=== PATIENT | male | born 1985 ===

== ENCOUNTER 2020-09-08 16:04 | Outpatient (REF) | payer MEDICARE, MEDICAID, SELFPAY | END 2020-09-08 16:05 | disposition home or self-care (01) | LOC: HO.LAB 16:04 | PROVIDERS: PCP Internal Medicine; Visit Provider Internal Medicine | DX: Z20.828 Contact with and (suspected) exposure to other viral communicable diseases (principal) | CPT/HCPCS: U0003 ==

== ENCOUNTER 2021-11-23 13:17 | Outpatient (REF) | payer MEDICARE, MEDICAID, SELFPAY ==
[2021-11-23 15:54] LABS: Binax Internal Control QC Valid; Binax Now Covid-19 Ag Negative (Negative)
== END 2021-11-23 13:18 | disposition home or self-care (01) ==
LOC: HO.LAB 13:17
PROVIDERS: Visit Provider Internal Medicine
DX: Z20.822 Contact with and (suspected) exposure to COVID-19 (principal)
CPT/HCPCS: C9803

== ENCOUNTER 2022-01-27 11:09 | Outpatient (REF) | payer MEDICARE, MEDICAID, SELFPAY ==
--- NOTE | ~2022-01-27 | XR_ITS ---
EXAMINATION: XR CHEST CLINICAL INFORMATION: Chest pain COMPARISON: Chest 06/08/2016 TECHNIQUE: 2 views of the chest were obtained. FINDINGS: The lungs are well-expanded with mild blunting of bilateral CP angles from pleural thickening. There is lingular atelectatic changes. Rest of lungs are clear. The heart size and pulmonary vascularity is normal. No gross bony abnormality seen. XR/XR chest 2V IMPRESSION: Lingular atelectasis. Rest of the lungs are clear and expanded. There is mild blunting of CP angle from pleural thickening and/or effusion.
[2022-01-27 11:34] LABS: Basophils Absolute Auto 0.1 X10*3/uL (0.0-0.2); Basophils Percent Auto 0.4 % (0-2); Eosinophils Absolute Auto 0.2 X10*3/uL (0.0-0.4); Eosinophils Percent Auto 1.6 % (0-4); Hematocrit 44.1 % (42.0-52.0); Hemoglobin 14.1 g/dl (14.0-18.0); Imm Gran Abs Auto 0.05 X10*3/uL (0.00-0.03); Imm Gran Pct Auto 0.4 % (0.0-0.4); Lymphocytes Absolute Auto 1.4 X10*3/uL (1.2-4.9); Lymphocytes Percent Auto 10.2 % (20-40); MANUAL DIFF FLAG SCAN; Mean Corpuscular Hemoglobin 27.3 pg (27.0-33.0); Mean Corpuscular Volume 85.5 fL (80.0-98.0); Monocytes Absolute Auto 2.2 X10*3/uL (0.1-1.2); Monocytes Percent Auto 15.7 % (2-11); Neutrophils Absolute Auto 10.1 x10*3/uL (2.0-8.3); Neutrophils Percent Auto 71.7 % (45-73); Platelet Count 296 X10*3/uL (160-400); Red Blood Count 5.16 X10*6/uL (4.60-5.80); Red Cell Distribution Width 13.3 % (11.0-16.0); SCAN SMEAR FLAG 1
[2022-01-27 12:10] LABS: SLIDE REVIEW VERIFIED
[2022-01-27 12:34] LABS: Alanine Aminotransferase 15 U/L (0-40); Albumin Level 4.1 g/dL (3.5-5.0); Alkaline Phosphatase 68 U/L (39-117); Anion Gap 13 (12-20); Aspartate Amino Transferase 14 U/L (5-37); Bilirubin Total 0.7 mg/dL (0.0-1.0); Blood Urea Nitrogen 6 mg/dL (9-16); Calcium 9.9 mg/dL (8.4-10.2); Carbon Dioxide 25 mmol/L (22-29); Chloride 106 mmol/L (96-108); Estimated Glomerular Filt Rate > 60; Glucose Fasting 101 mg/dL (60-99); Sodium 140 mmol/L (135-145); Total Protein 7.6 g/dL (6.5-8.0)
== END 2022-01-27 11:10 | disposition home or self-care (01) ==
LOC: HO.LAB 11:09
PROVIDERS: PCP Internal Medicine; Visit Provider Nurse Practitioner Family
DX: R55 Syncope and collapse (principal); R51.9 Headache, unspecified; R07.9 Chest pain, unspecified; I10 Essential (primary) hypertension; E78.00 Pure hypercholesterolemia, unspecified
CPT/HCPCS: 36415; 71046; 80053; 84443; 85025

== ENCOUNTER → 2022-03-11 11:27 | Outpatient (REF) | payer MEDICARE, MEDICAID, SELFPAY ==
--- NOTE | 2022-03-11 11:29 | HM_ITS ---
* Total monitoring time 6 days and 23 hours. * Underlying rhythm is sinus. Average rate 77/Min. Range 47 to 144/Min. * No atrial fibrillation or flutter or AV blocks or pauses. * Rare supraventricular ectopy with minimal burden. * Rare ventricular ectopy with minimal burden. * No patient events. MTDD
== END ==
LOC: HO.CARD 11:27
PROVIDERS: PCP Internal Medicine; Visit Provider Nurse Practitioner Family
DX: R55 Syncope and collapse (principal); R51.9 Headache, unspecified
CPT/HCPCS: 93242

== ENCOUNTER 2022-10-27 09:09 | Outpatient (REF) | payer MEDICARE, MEDICAID, SELFPAY ==
[2022-10-27 09:24] LABS: MANUAL DIFF FLAG NO
[2022-10-27 09:31] LABS: Basophils Absolute Auto 0.1 X10*3/uL (0.0-0.2); Basophils Percent Auto 0.7 % (0-2); Eosinophils Absolute Auto 0.5 X10*3/uL (0.0-0.4); Eosinophils Percent Auto 7.1 % (0-4); Hematocrit 45.5 % (42.0-52.0); Imm Gran Abs Auto 0.02 X10*3/uL (0.00-0.03); Imm Gran Pct Auto 0.3 % (0.0-0.4); Lymphocytes Absolute Auto 2.3 X10*3/uL (1.2-4.9); Mean Corpuscular Hemoglobin 27.6 pg (27.0-33.0); Mean Corpuscular Volume 83.8 fL (80.0-98.0); Mean Platelet Volume 10.4 fL (9.4-12.4); Monocytes Percent Auto 13.1 % (2-11); Neutrophils Absolute Auto 3.6 x10*3/uL (2.0-8.3); Neutrophils Percent Auto 47.8 % (45-73); Platelet Count 271 X10*3/uL (160-400); Red Blood Count 5.43 X10*6/uL (4.60-5.80); Red Cell Distribution Width 13.2 % (11.0-16.0); White Blood Count 7.5 X10*3/uL (4.8-10.8)
[2022-10-27 10:13] LABS: Erythrocyte Sedimentation Rate 5 MM/HR (0-15)
[2022-10-27 10:37] LABS: Alanine Aminotransferase 19 U/L (0-40); Albumin Level 4.3 g/dL (3.5-5.0); Alkaline Phosphatase 55 U/L (39-117); Anion Gap 12 (12-20); Aspartate Amino Transferase 21 U/L (5-37); Blood Urea Nitrogen 9 mg/dL (9-16); Calcium 9.8 mg/dL (8.4-10.2); Carbon Dioxide 23 mmol/L (22-29); Chloride 109 mmol/L (96-108); Cholesterol 127 mg/dL; Estimated Glomerular Filt Rate > 60; Glucose Fasting 92 mg/dL (60-99); HDL Cholesterol 36 mg/dL; LDL Cholesterol Calculated 79 mg/dl; Potassium 3.8 mmol/L (3.3-5.1); Sodium 140 mmol/L (135-145); Total Protein 7.4 g/dL (6.5-8.0); Triglycerides 63 mg/dL
[2022-10-27 11:42] LABS: Bilirubin Total 0.5 mg/dL (0.0-1.0); TSH reflex Free T4 0.95 uIU/mL (0.32-4.0); Vitamin D 25-OH Total 8.6 ng/mL (>30)
[2022-10-27 12:57] LABS: Folate 5.2 ng/mL (> or = 4.0); Vitamin B12 431 pg/mL (200-900)
== END 2022-10-27 09:10 | disposition home or self-care (01) ==
LOC: HO.LAB 09:09
PROVIDERS: PCP Internal Medicine; Visit Provider Internal Medicine
DX: Z00.00 Encounter for general adult medical examination without abnormal findings (principal); Q85.01 Neurofibromatosis, type 1; E53.8 Deficiency of other specified B group vitamins; E55.9 Vitamin D deficiency, unspecified; G81.91 Hemiplegia, unspecified affecting right dominant side; M79.7 Fibromyalgia
CPT/HCPCS: 36415; 80053; 80061; 82306; 82607; 82746; 84443; 85025; 85652

== ENCOUNTER 2022-10-28 15:02 | Outpatient (REF) | payer MEDICARE, MEDICAID, SELFPAY ==
--- NOTE | ~2022-10-28 | MR_ITS ---
EXAMINATION: MR BRAIN WITHOUT CONTRAST CLINICAL INFORMATION: Hemiplegia, unspecified affecting right dominant side. COMPARISON: Brain MRI from outside hospital February 07, 2022. TECHNIQUE: Multiplanar, multisequence imaging of the brain was performed without intravenous contrast. FINDINGS: There is no acute infarction, hemorrhage, brain parenchymal mass, or extra-axial fluid collection. There is asymmetric enlargement of the right optic nerve predominantly involving the intracanalicular segment but appears similar compared with prior. There is a partially visualized large extracranial lesion centered within the right C1-C2 neural foramen presumably representing a large neurofibroma. Innumerable lesions are seen throughout the scalp compatible with additional neurofibromas. The ventricles are normal in size without hydrocephalus. The major arterial flow voids are preserved at the skull base There is a possible lesion within the upper cervical canal at the C2-C3 level seen on series 3 image 12/. 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 There is a possible lesion within the cervical canal at the C2-C3 level which could represent an extra-axial lesion or potentially an intramedullary lesion (series 3 image 12/23). Dedicated cervical spine MRI without and with contrast is recommended to further evaluate this abnormality. Unchanged enlargement of the right optic nerve. No new or acute abnormality is seen. This report will be called in to the referring clinician's office.
== END 2022-10-28 15:03 | disposition home or self-care (01) ==
LOC: HO.MRI 15:02
PROVIDERS: Visit Provider Internal Medicine
DX: G81.91 Hemiplegia, unspecified affecting right dominant side (principal)
CPT/HCPCS: 70551

== ENCOUNTER 2022-11-16 12:43 | Outpatient (REF) | payer MEDICARE, MEDICAID, SELFPAY ==
--- NOTE | ~2022-11-16 | MR_ITS ---
EXAMINATION: MR CERVICAL SPINE WITHOUT AND WITH CONTRAST CLINICAL INFORMATION: Possible lesion cervical canal at C2-C3. COMPARISON: Brain MRI 10/28/2022. TECHNIQUE: MRI of the cervical spine was performed with routine sequences without and with intravenous contrast. A total of 9 ml of Gadavist was intravenously administered. FINDINGS: There is a large enhancing neurofibroma within the right C3-C4 neural foramen which demonstrates a large intracanalicular component which extends cranially within the canal. The intracanalicular component measures approximately 2.7 cm in size and results in severe compression of the cord which is displaced into the left aspect of the spinal canal. There is associated intramedullary T2 hyperintense signal change. Multiple additional neurofibromas are seen bilaterally along the cervical levels with smaller intracanalicular components seen bilaterally at C2-C3, on the left at C3-C4, C4-C5, and on the left more than right at C5-C6. The vertebral bodies demonstrate normal heights and alignment. There is no disc herniation. No upper thoracic cord signal abnormality is seen. The large neurofibroma along the right aspect of C1-C2 is again demonstrated measuring up to 4.5 cm in maximal size. Additional smaller neurofibromas are seen throughout the cervical tissues and in the dermis. MR/MR cervical spine wo/w con IMPRESSION: Large neurofibroma seen within the right C3-C4 neural foramen with large component in the spinal canal resulting in severe compression of the cord which is displaced into the left aspect of the spinal canal. Multiple additional neurofibromas are seen along the cervical levels with smaller intracanalicular components seen bilaterally at C2-C3, on the left at C3-C4, C4-C5, and on the left more than right at C5-C6. Neurosurgical evaluation recommended given the cord compression. This critical result was discussed with Kacie Patton RN on 11/16/2022 2:13 PM, and it was ascertained that the content and urgency of the report was understood at the time of direct communication.
[2022-11-16 13:09] LABS: Appearance Urine Hazy; Color Urine Yellow; Glucose Urine UA Negative (Negative); Leukocyte Esterase Urine Negative (Negative); Nitrite Urine Negative (Negative); Specific Gravity - Urine 1.025 (1.005-1.025); Urine Blood Negative (Negative); Urine Ketones Negative (Negative); Urine Protein Negative (Neg-Trace)
== END 2022-11-16 12:44 | disposition home or self-care (01) ==
LOC: HO.MRI 12:43
PROVIDERS: PCP Internal Medicine; Visit Provider Internal Medicine
DX: Z00.00 Encounter for general adult medical examination without abnormal findings (principal); Q85.01 Neurofibromatosis, type 1; D49.2 Neoplasm of unspecified behavior of bone, soft tissue, and skin
CPT/HCPCS: 72156; 81003; A9585

== ENCOUNTER 2023-03-07 10:14 | Outpatient (REF) | payer MEDICARE, MEDICAID, SELFPAY ==
--- NOTE | ~2023-03-07 | XR_ITS ---
EXAMINATION: Knee x-ray CLINICAL INFORMATION: Pain COMPARISON: None. TECHNIQUE: 3 views each knee FINDINGS: Right: Bone alignment is normal. No fracture or dislocation. Normal joint spaces. No joint effusion. Left: Bone alignment is normal. No fracture or dislocation. Joint spaces are normal. No joint effusion. Standing AP view of the knees demonstrate right knee joint higher than the left. XR/XR knee standing BI IMPRESSION: Right knee joint higher than the left otherwise unremarkable exam
--- NOTE | ~2023-03-07 | XR_ITS ---
EXAMINATION: Knee x-ray CLINICAL INFORMATION: Pain COMPARISON: None. TECHNIQUE: 3 views each knee FINDINGS: Right: Bone alignment is normal. No fracture or dislocation. Normal joint spaces. No joint effusion. Left: Bone alignment is normal. No fracture or dislocation. Joint spaces are normal. No joint effusion. Standing AP view of the knees demonstrate right knee joint higher than the left. XR/XR knee RT 2V IMPRESSION: Right knee joint higher than the left otherwise unremarkable exam
--- NOTE | ~2023-03-07 | XR_ITS ---
EXAMINATION: Knee x-ray CLINICAL INFORMATION: Pain COMPARISON: None. TECHNIQUE: 3 views each knee FINDINGS: Right: Bone alignment is normal. No fracture or dislocation. Normal joint spaces. No joint effusion. Left: Bone alignment is normal. No fracture or dislocation. Joint spaces are normal. No joint effusion. Standing AP view of the knees demonstrate right knee joint higher than the left. XR/XR knee LT 2V IMPRESSION: Right knee joint higher than the left otherwise unremarkable exam
== END 2023-03-07 10:15 | disposition home or self-care (01) ==
LOC: HO.HOSX 10:14
PROVIDERS: Visit Provider Physician Assistant
DX: M25.562 Pain in left knee (principal); M25.561 Pain in right knee
CPT/HCPCS: 73560; 73565; 99202

== ENCOUNTER → 2023-03-16 15:50 | Outpatient (BNVA) | payer MEDICARE, MEDICAID, SELFPAY | PROVIDERS: PCP Internal Medicine; Visit Provider Nurse Practitioner Family | DX: K21.9 Gastro-esophageal reflux disease without esophagitis (principal); R10.32 Left lower quadrant pain | CPT/HCPCS: 99202 ==

== ENCOUNTER 2023-05-31 16:18 | Outpatient (REF) | payer MEDICARE, MEDICAID, SELFPAY ==
[2023-05-31 17:34] LABS: Alanine Aminotransferase 25 U/L (0-40); Albumin Level 4.2 g/dL (3.5-5.0); Alkaline Phosphatase 63 U/L (39-117); Aspartate Amino Transferase 22 U/L (5-37); Bilirubin Direct 0.2 mg/dL (0.0-0.5); Bilirubin Total 0.6 mg/dL (0.0-1.0); Lipase 13 U/L (8-78); Total Protein 8.1 g/dL (6.5-8.0)
[2023-06-02 13:33] LABS: Transglutaminase Ab IgG <1.0 U/mL; Transglutaminase IgA <1.0 U/mL
[2023-06-05 16:38] LABS: Vitamin D 25-OH, D2 <4 ng/mL; Vitamin D 25-OH, D3 23 ng/mL; Vitamin D 25-OH, Total 23 ng/mL (30-100)
== END 2023-05-31 16:19 | disposition home or self-care (01) ==
LOC: HO.LAB 16:18
PROVIDERS: PCP Internal Medicine; Visit Provider Nurse Practitioner Family
DX: R10.9 Unspecified abdominal pain (principal); E55.9 Vitamin D deficiency, unspecified
CPT/HCPCS: 36415; 80076; 82306; 83690; 86364

== ENCOUNTER 2023-06-09 12:46 | Outpatient (AMB) | payer MEDICARE, MEDICAID, SELFPAY ==
--- NOTE | 2023-06-09 12:48 | A.OFFVIS_ITS ---
Intake Vital Signs 06/09/23 12:49 Height 6 ft 1 in Weight 214 lb 11.684 oz BMI 28.3 BP 110/70 Blood Pressure Location Rt brachial Position Sitting Pulse 90 Intake Visit Reasons: 2 month follow up Intake Note: Eder presents in office today in 2 months follow up of abdominal pain. CC: Patient reports he continues to have constant mid upper abdominal pain. Pain scale 10/10, onset a year ago. Denies other GI symptoms today. 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 Patient reported having pinching like pain during the appointment that came in gone pretty quickly. Uns ure if this pain is related to patient's gas trapping like pain or neurological pain related to his spine. Requested CT scan results from patient's oncologist. Patient will bring results on Monday. Possible that patient does not empties his bowels completely. Will give him script for MiraLax to try and see if this is going to be better. Low FODMAP diet discussed with patient and recommendation list as well as list of food to avoid given to patient. GERD (gastroesophageal reflux disease) Avoid dietary triggers in late night snacking. Staying upright for minimal 3 hours after meals discussed with patient. Will start patient on omeprazole. I will see him in 2 months, sooner on as needed basis. Patient is agreeable to this plan and verbalizes understanding of instructions. He was given the opportunity to ask questions and all questions answered. ? Thank you for me to participate in his care Plan Orders Orders Lipase Today R10.9 Liver Panel Today R10.9 Vitamin D 25-OH (D2 and D3) Today E55.9 Transglutaminase IgA Today R10.9 Transglutaminase Ab IgG Today R10.9 Medications New polyethylene glycol 3350 (Miralax) 17 grams PO DAILY 510 grams 2RF omeprazole 20 mg PO DAILY 30 caps 3RF K21.9 TODAY'S VISIT Patient is here today for follow-up and to discuss lab results. Essentially patient had negative workup except he had mildly low vitamin-D level. Patient reports that he is doing little better, however he continues to have epigastric discomfort. Patient is not following any particular diet. Discussed with patient the importance of avoiding dietary triggers. He continues to take omeprazole every morning half an hour before breakfast. Patient reports that he is moving his bowels better now that he takes MiraLax. Patient reports that he has seen his consulting psychologist and a surgeon and has on appointment for chest and abdominal CT scan. Patient denies any nausea or vomiting. Denies melena, hematochezia, unintentional weight loss or ribbon like stools. Patient denies any nausea or vomiting [facility] Medical History Anxiety and depression Chronic depression Gastrointestinal stromal tumor of small intestine History of stomach cancer Neurofibromatosis type 1-like syndrome Overweight (BMI 25.0-29.9) Vitamin D deficiency Surgical History Hx of laminectomy (~12/15/22) Hx of local excision of skin lesion (~2019) Family History Father No problems noted. Mother No problems noted. Sister No problems noted. Daughter No problems noted. Social History Housing: Apartment Alcohol intake: never Patient Tobacco Use Status: Never used Tobacco e-Cigarette/Vaping Use: Currently Using service: No Current occupational status: disabled Cognitive needs: No Hearing needs: No Vision needs: Yes Review of Systems Const Denies weight gain and Denies weight loss ENT Reports no additional complaints, Denies dysphagia and Denies odynophagia Card Reports no additional complaints Resp Reports no additional complaints GI Reports abdominal pain (LLQ), Denies belching, Denies melena, Denies bloating, Denies change in bowel habits, Denies dysphagia, Denies excessive flatus, Denies dyspepsia, Denies heartburn, Denies diarrhea, Denies loose stools, Denies nausea, Denies odynophagia and Denies vomiting Reports no additional complaints Musc Reports no additional complaints Neuro Reports no additional complaints Psych Reports no additional complaints Endo Reports no additional complaints Physical Exam Vital Signs: Last Vital Signs Pulse 90 06/09/23 12:49 BP 110/70 06/09/23 12:49 BMI result Body Mass Index 28.3 Const General: healthy appearing, no acute distress and well developed Nutritional Appearance: well nourished Orientation/consciousness: patient oriented x3 HEENT Head: Yes normal to inspection, Yes normocephalic and Yes atraumatic Face and sinus: Yes normal facial exam Mouth: Normal oral and palatal mucosa present Throat: Yes posterior oropharynx normal, Yes tonsils normal and Yes uvula midline Eyes General: appearance normal, both eyes and all related structures Neck Neck: Yes normal visual inspection, Yes full ROM and Yes trachea midline Thyroid: Thyroid normal Resp Effort & Inspection: normal respiratory effort, able to speak in complete sentences, no tracheal deviation and symmetric chest movement Auscultation: clear to auscultation bilaterally Cardio Rate: regular rate Heart sounds: S1 normal heart sound present and S2 normal heart sound present GI Inspection: Yes normal to inspection and No distended Palpation (GI): Soft to palpation, not firm, nontender and No hepatosplenomegaly present Auscultation: normal bowel sounds General: Yes no CVA tenderness Back/Spine/Pelvis Back: no CVA tenderness Skin General skin exam: elasticity normal, turgor normal and dry skin Neuro General: patient oriented x3 Psych Appearance: grossly normal Mental Status: mental status grossly normal Speech and movement: Normal speech and movement present Affect: normal affect Assessment & Plan Assessment & Plan (1) Left sided abdominal pain of unknown cause: Code(s): R10.9 - Unspecified abdominal pain Plan: Were previously patient's pain was more in the epigastric area. Patient reports that his pain now is more in the left lower quadrant. Sometimes in the left upper quadrant. Patient is not emptying his bowels completely. Patient was encouraged to continue MiraLax, increase fluid intake and activity to promote b curt bowel motility. (2) Vitamin D deficiency: Code(s): E55.9 - Vitamin D deficiency, unspecified Plan: Patient will start vitamin-D every day. I will see patient in 4 weeks, sooner on as needed basis. Patient is agreeable to this plan and verbalizes understanding of instructions. A waiting CT scan results from [facility]. Patient was encouraged to bring the results to of when they are red. He is agreeable to this plan and verbalizes understanding of instructions. He was giv en the opportunity to ask questions and all questions answered. Thank you for allowing me to participate in his care Medications: Refilled cholecalciferol (vitamin D3) 50 mcg PO DAILY 90 caps 3RF 90 days E55.9 - Vitamin D deficiency, unspecified Coding Level of Care Code Est Pt Level 3 (68937) Diagnoses Left sided abdominal pain of unknown cause R10.9 Vitamin D deficiency E55.9 Time Spent (min) 30 Comment 20 minutes spent with patient and additional 10 minutes spent reviewing his records
[2023-06-09 12:49] VITALS: BP 110/70; PULSE 90; BMI 28.3
== END 2023-06-09 13:46 | disposition home or self-care (01) ==
PROVIDERS: PCP Internal Medicine; Visit Provider Nurse Practitioner Family
DX: R10.9 Unspecified abdominal pain (principal); E55.9 Vitamin D deficiency, unspecified
CPT/HCPCS: 99213

== ENCOUNTER → 2023-06-09 12:46 | Outpatient (BNVA) | payer MEDICARE, MEDICAID, SELFPAY | PROVIDERS: PCP Internal Medicine; Visit Provider Nurse Practitioner Family | DX: R10.9 Unspecified abdominal pain (principal); E55.9 Vitamin D deficiency, unspecified | CPT/HCPCS: 99212 ==

== ENCOUNTER 2023-07-07 12:55 | Outpatient (AMB) | payer MEDICARE, MEDICAID, SELFPAY ==
--- NOTE | 2023-07-07 13:06 | A.OFFVIS_ITS ---
Intake Vital Signs 07/07/23 13:07 Height 6 ft 1 in Weight 214 lb 11.684 oz BMI 28.3 BP 106/72 Blood Pressure Location Lt brachial Position Sitting Pulse 85 Intake Visit Reasons: 4 week fu Intake Note: Eder presents in office today in weeks follow up of abdominal pain. CC: Patient reports he started taking Gabapentin 100 mg TID and it helps with his pain. Pt reports he stills he has the abdominal pain but is better. Denies other GI symptoms today. [facility] Required: No Accompanied by: Self / Same As Patient Allergies No Known Allergies Allergy (Mild, Verified 07/07/23 13:09) NONE HPI 4 week fu HPI Details LAST VISIT Left sided abdominal pain of unknown cause Were previously patient's pain was more in the epigastric area. Patient reports that his pain now is more in the left lower quadrant. Sometimes in the left upper quadrant. Patient is not emptying his bowels completely. Patient was encouraged to continue MiraLax, increase fluid intake and activity to promote better bowel motility. Vitamin D deficiency Patient will start vitamin-D every day. I will see patient in 4 weeks, sooner on as needed basis. Patient is agreeable to this plan and verbalizes understanding of instructions. A waiting CT scan results from [facility]. Patient was encouraged to bring the results to of when they are red. He is agreeable to this plan and verbalizes understanding of instructions. He was given the opportunity to ask questions and all questions answered. ? Thank you for allowing me to participate in his care Plan Medications Refilled cholecalciferol (vitamin D3) 50 mcg PO DAILY 90 caps 3RF 90 days E55.9 TODAY'S VISIT: Patient is a day for. Patient reports that he is feeling better. Started taking gabapentin couple days ago and reports that his symptoms of abdominal discomfort are better. 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 Patient is seeing his surgeon in [place]. Patient denies dyspepsia, dysphagia or odynophagia. Denies melena, hematochezia, unintentional weight loss or ribbon like stools. Patient no longer is using MiraLax. States that he is moving his bowels without any issues. Patient is taking omeprazole daily in his symptoms of acid reflux are suppressed. Patient denies melena, hematochezia, unintentional weight loss or ribbon like stools. [facility] Medical History Anxiety and depression Chronic depression Gastrointestinal stromal tumor of small intestine History of stomach cancer Neurofibromatosis type 1-like syndrome Overweight (BMI 25.0-29.9) Vitamin D deficiency Surgical History Hx of laminectomy (~12/15/22) Hx of local excision of skin lesion (~2019) Family History Father No problems noted. Mother No problems noted. Sister No problems noted. Daughter No problems noted. Social History Housing: Apartment Alcohol intake: never Patient Tobacco Use Status: Never used Tobacco e-Cigarette/Vaping Use: Currently Using service: No Current occupational status: disabled Cognitive needs: No Hearing needs: No Vision needs: Yes Review of Systems Const Denies weight gain and Denies weight loss ENT Reports no additional complaints, Denies dysphagia and Denies odynophagia Card Reports no additional complaints Resp Reports no additional complaints GI Denies abdominal pain, Denies belching, Denies melena, Denies bloating, Denies change in bowel habits, Denies dysphagia, Denies excessive flatus, Denies dysp epsia, Denies heartburn, Denies diarrhea, Denies loose stools, Denies nausea, Denies odynophagia and Denies vomiting Reports no additional complaints Musc Reports no additional complaints Neuro Reports no additional complaints Psych Reports no additional complaints Endo Reports no additional complaints Physical Exam Vital Signs: Last Vital Signs Pulse 85 07/07/23 13:07 BP 106/72 07/07/23 13:07 BMI result Body Mass Index 28.3 Const General: healthy appearing, no acute distress and well developed Nutritional Appearance: well nourished Orientation/consciousness: patient oriented x3 HEENT Head: Yes normal to inspection, Yes normocephalic and Yes atraumatic Face and sinus: Yes normal facial exam Mouth: Normal oral and palatal mucosa present Throat: Yes posterior oropharynx normal, Yes tonsils normal and Yes uvula midline Eyes General: appearance normal, both eyes and all related structures Neck Neck: Yes normal visual inspection, Yes full ROM and Yes trachea midline Thyroid: Thyroid normal Resp Effort & Inspection: normal respiratory effort, able to speak in complete sentences, no tracheal deviation and symmetric chest movement Auscultation: clear to auscultation bilaterally Cardio Rate: regular rate Heart sounds: S1 normal heart sound present and S2 normal heart sound present GI Inspection: Yes normal to inspection and No distended Palpation (GI): Soft to palpation, not firm, nontender and No hepatosplenomegaly present Auscultation: normal bowel sounds General: Yes no CVA tenderness Back/Spine/Pelvis Back: no CVA tenderness Neuro General: patient oriented x3 Psych Appearance: grossly normal Mental Status: mental status grossly normal Speech and movement: Normal speech and movement present Assessment & Plan Assessment & Plan (1) Abdominal pain: Code(s): R10.9 - Unspecified abdominal pain Qualifiers: Abdominal location: left lower quadrant Qualified Code(s): R10.32 - Left lower quadrant pain Plan: Pain most likely related to neurofibroma. Patient has appointment with his surgeon next month. (2) GERD (gastroesophageal reflux disease): Code(s): K21.9 - Gastro-esophageal reflux disease without esophagitis Qualifiers: Esophagitis presence: esophagitis presence not specified Qualified Code(s): K21.9 - Gastro-esophageal reflux disease without esophagitis Plan: Continue omeprazole daily. Discussed with patient avoiding dietary triggers and late night snacking. Staying upright for minimum 3 hours after meals discussed with patient. (3) Constipation: Code(s): K59.00 - Constipation, unspecified Qualifiers: Constipation type: slow transit constipation Qualified Code(s): K59.01 - Slow transit constipation Plan: Patient was encouraged to increase fluid intake and activity to promote better bowel motility. Patient is going to start taking gabapentin this my slow down his bowels. Patient was encouraged to take [id number] MiraLax or stool softeners if he will be constipated. I will see him in 6 months, sooner on as needed basis. Patient is agreeable to plan of care and verbalizes understanding of instructions. He was given the opportunity to ask questions and all questions answered. Thank you for allowing me to participate in his care Coding Level of Care Code Est Pt Level 3 (69077) Diagnoses Left lower quadrant abdominal pain R10.32 Abdominal location: left lower quadrant Gastroesophageal reflux disease, unspecified whether esophagitis present K21.9 Esophagitis presence: esophagitis presence not specified Slow transit constipation K59.01 Constipation type: slow transit constipation Time Spent (min) 30 Comment 20 minutes spent with patient and additional 10 minutes spent reviewing his records
[2023-07-07 13:07] VITALS: BP 106/72; PULSE 85; BMI 28.3
== END 2023-07-07 13:52 | disposition home or self-care (01) ==
PROVIDERS: PCP Internal Medicine; Visit Provider Nurse Practitioner Family
DX: R10.32 Left lower quadrant pain (principal); K21.9 Gastro-esophageal reflux disease without esophagitis; K59.01 Slow transit constipation
CPT/HCPCS: 99213

== ENCOUNTER → 2023-07-07 12:55 | Outpatient (BNVA) | payer MEDICARE, MEDICAID, SELFPAY | PROVIDERS: PCP Internal Medicine; Visit Provider Nurse Practitioner Family | DX: R10.32 Left lower quadrant pain (principal); K21.9 Gastro-esophageal reflux disease without esophagitis; K59.01 Slow transit constipation | CPT/HCPCS: 99212 ==

== ENCOUNTER 2023-08-25 15:49 | Outpatient (AMB) | payer MEDICARE, MEDICAID, SELFPAY ==
[2023-08-25 15:53] VITALS: BP 116/76; PULSE 97; O2SAT 99; BMI 28.4
--- NOTE | 2023-08-25 15:53 | MHC.PC.OV ---
Vital Signs 08/25/23 15:53 Height 6 ft 1 in Weight 215 lb 4 oz BMI 28.4 BP 116/76 Blood Pressure Location Lt brachial Position Sitting Pulse 97 Pulse Source Pulse Oximeter Pulse Oximetry (%) 99 Oxygen Delivery Method Room Air Intake Visit Reasons: PE Surgical Rn Required: No Accompanied by: Self / Same As Patient Allergies No Known Allergies Allergy (Mild, Verified 08/25/23 16:42) NONE Medication List - Last Reconciled 08/25/23 by Yasir Viramontes MD acetaminophen 500 - 1,000 mg (1 - 2 x 500 mg) PO Q6H PRN cholecalciferol (vitamin D3) 50 mcg PO DAILY 90 days fluoxetine 40 mg PO DAILY gabapentin 100 mg PO TID omeprazole 20 mg PO DAILY polyethylene glycol 3350 (Miralax) 17 grams PO DAILY tramadol 50 mg PO BID PRN trazodone 100 mg PO BEDTIME PRN Tobacco use date assessed: 08/25/23 Dental Screening Dental Screen Date: 08/25/23 Did you have a dental visit in the last 12 months?: No Did you have a dental problem in the last 6 months where you did not have access to dental care?: No Was dental information given to patient?: No HPI PE HPI Details Patient comes in today for his annual physical examination States that he continues to experience frequent abdominal pains, especially over the upper abdomen Chest CT done at [facility] back in June 2023 revealed (+) increase in size in both the left extrapleural and left retroperitoneal mass, which are most likely the main source of his recently increasing and frequent upper abdominal pain and discomfort He is reportedly scheduled to see thoracic surgery at [facility] next Monday and will then be scheduled to undergo resection of these enlarging neurofibroma lesions soon States that he feels okay otherwise He denies any headaches or dizziness Denies any chest pains, no SOB No nausea/vomiting; still has on and off constipation but taking stool softeners help Denies any acute urinary symptoms Needs his Trazodone Rx refilled [facility] Medical History Vitamin D deficiency Overweight (BMI 25.0-29.9) History of stomach cancer Gastrointestinal stromal tumor of small intestine Chronic depression Anxiety and depression Neurofibromatosis type 1-like syndrome Surgical History Hx of laminectomy (~12/15/22) Hx of local excision of skin lesion (~2019) Family History Father No problems noted. Mother No problems noted. Sister No problems noted. Daughter No problems noted. Social History Housing: Apartment Alcohol intake: never Patient Tobacco Use Status: Never used Tobacco e-Cigarette/Vaping Use: Currently Using service: No Current occupational status: disabled Cognitive needs: No Hearing needs: No Vision needs: Yes Questionnaire PHQ-9 Over the last 2 weeks, how often have you been bothered by any of the following problems? 1. Little interest or pleasure in doing things: not at all 2. Feeling down, depressed, or hopeless: several days 3. Trouble falling or staying asleep, or sleeping too much: nearly every day (falling asleep ) 4. Feeling tired or having little energy: nearly every day 5. Poor appetite or overeating: not at all (poor appetite) 6. Feeling bad about yourself - or that you are a failure or have let yourself or your family down: not at all 7. Trouble concentrating on things, such as reading the newspaper or watching television: not at all 8. Moving or speaking so slowly that other people could have noticed. Or the opposite - being so fidgety or restless that you have been moving around a lot more than usual: not at all 9. Thoughts that you would be better off or of hurting yourself in some way: not at all Total score: 7 Depression Screening Interpretation: Positive Depression Screening Follow-up: Existing condition and In treatment Depression Screening Done: Yes 95085 - PHQ-9 Billing: Yes Source: Developed by Drs. Mahin Ding, Anac Thompson, Aldo Spear and colleagues, with an educational tony from [employer]. Thrive Questionnaire Date Thrive assessed: 08/25/23 I am a: Patient What is your living situation today?: I have a steady place to live Within the past 12 months, did the food you bought not last and you didn't have the money to get more?: Never true Within the past 12 months, did you worry whether your food would run out before you got money to buy more?: Never true Do you have trouble paying for medicines?: No Do you have trouble getting transportation to medical appointments?: No Do you have trouble paying your heating and electricity bill?: No Do you have trouble taking care of your child, family member or friend?: No Do you have trouble with day-to-day activities such as bathing, preparing meals, shopping, managing finances, etc.?: No Are you currently unemployed and looking for a job?: No Are you interested in more education?: No Please select the resources that you would like help with: None Currently or been in a relationship where the following occur: no concerns reported AUDIT C Alcohol Use Questionnaire (AUDIT-C) 1. How often do you have a drink containing alcohol?: Never 3. How often do you have six or more drinks on one occasion?: Never Total Score: 0 Score Reviewed/Action Taken: Yes RUIBO-7 AMB Questionnaire RUBIO-7 Date RUBIO - 7 assessed: 08/25/23 Feeling nervous, anxious, or on edge: 3 = Nearly every day Not being able to stop or control worryin = Nearly every day Worrying too much about different things: 3 = Nearly every day Trouble relaxin = Nearly every day Being so restless that it is hard to sit still: 0 = Not at all Becoming easily annoyed or irritable: 3 = Nearly every day Feeling afraid as if something awful might happen: 3 = Nearly every day Total RUBIO-7 score (0-4 normal; 5-9 mild; 10-14 moderate; 15-21 severe): 18 Source: Developed by Drs. Mahin Ding, Anca Thompson, Aldo Spear and colleagues, with an educational tony from [employer]. RUBIO-7 Assessment Billing RUBIO-7 Assessment Tool: RUBIO-7 Assessment 68418 Review of Systems Const Denies chills, Denies fatigue, Denies fever(s), Denies headache(s), Denies malaise and Denies weakness Eyes Denies blurry vision, Denies change in vision, Denies irritation and Denies itchy eyes ENT Denies dysphagia, Denies dizziness, Denies otalgia, Denies headache(s), Denies nasal congestion, Denies neck pain, Denies odynophagia and Denies sore throat Card Denies chest pain, Denies rapid heart rate, Denies irregular heart rhythm, Denies palpitations and Denies dyspnea Resp Denies chest congestion, Denies cough, Denies dyspnea and Denies wheezing GI Reports abdominal pain (recurrent, especially over the upper abdomen and more on the left side), Denies bloating, Reports constipation (at times - Rx help), Denies dysphagia, Denies heartburn, Denies diarrhea, Denies nausea, Denies odynophagia and Denies vomiting Denies hematuria, Denies difficulty urinating, Denies dysuria, Denies urinary frequency and Denies urinary urgency Musc Denies back pain, Denies arthralgias and Denies neck pain Skin/Breast Denies change in pigmentation, Denies lesions, Denies rash and Denies unusual bruising Neuro Denies dizziness, Denies headache(s), Denies paresthesias and Denies weakness Endo Denies fatigue and Denies palpitations Aller/Immun Denies itchy eyes and Denies wheezing Physical exam (Primary Care) Vital Signs: Last Vital Signs Pulse 97 08/25/23 15:53 BP 116/76 08/25/23 15:53 Pulse Ox 99 08/25/23 15:53 Oxygen Delivery Method Room Air 08/25/23 15:53 BMI result Body Mass Index 28.4 Tobacco/Smoking Status: Tobacco use Status Tobacco use date assessed 08/25/23 08/25/23 15:59 Patient Tobacco Use Status Never used Tobacco 08/25/23 15:59 e-Cigarette/Vaping Use Currently Using 08/25/23 15:59 PHQ-9: PHQ-9 Score PHQ-9: Total score 7 08/26/23 05:42 Depression Screening Interpretation: Positive Depression Screening Follow-up: Existing condition and In treatment Thrive Assessment: Date of Thrive Assessment Date Thrive assessed 08/25/23 08/25/23 15:59 Currently or been in a relationship where the following occur: no concerns reported Const General: no acute distress, alert and awake Orientation/consciousness: patient oriented x3 HENMT Head: Yes normocephalic and Yes atraumatic Ears: external ears normal, TM's normal bilaterally and EAC's normal General nose exam: No nasal discharge present Face and sinus: Yes normal facial exam and Yes sinuses nontender Teeth and gingiva: dentition normal Throat: Yes posterior oropharynx normal and Yes tonsils normal (no TP congestion) Eyes Eyelids: Yes eyelids normal Conjunctivae: conjunctivae normal Pupils: Equal, round and reactive pupils present EOM: EOMs intact bilaterally Neck Neck: Yes no lymphadenopathy and Yes supple Thyroid: Thyroid normal Resp Auscultation: clear to auscultation bilaterally, no rales and no wheezes Cardio Rate: regular rate Rhythm: regular rhythm Heart sounds: no murmurs GI Palpation (GI): Soft to palpation, nontender and No hepatosplenomegaly present Auscultation: normal bowel sounds General: Yes no CVA tenderness Back/Spine/Pelvis Back: no CVA tenderness Thoracic/Lumbar Spine: thoracic and lumbar spine normal to inspection Skin Lesions: no lesions Rashes: no rashes Neuro General: patient oriented x3, moves all extremities, no focal motor deficits and CN's II-XI intact bilaterally Cranial nerves: Yes Equal, round and reactive pupils present Cognition (Neuro): normal cognition Gait exam (Neuro): Normal gait present Extrem General: Yes no clubbing, cyanosis or edema Assessment and Plan Assessment & Plan (1) Annual physical exam: Code(s): Z00.00 - Encounter for general adult medical examination without abnormal findings Plan: Check labs (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 Panda on 12/15/2022, with significant improvement of his previous right arm and right leg symptoms Brain MRI and cervical spine MRI in October 2022 both revealed the presence of large neurofibromas within the C3-C4 neural foramen resulting in severe compression of the cord, displacing it into the left aspect of the spinal canal. There are also multiple additional neurofibromas seen along the other cervical levels with smaller intracanalicular components bilaterally at C2-C3, C4-C5 and C5-C6 Follow-up with neurosurgery as scheduled (3) Neurofibromatosis, type 1 (von Recklinghausen's disease): Code(s): Q85.01 - Neurofibromatosis, type 1 Plan: Follow up with neurology as scheduled (4) Gastrointestinal stromal tumor of small intestine: Code(s): C49.A3 - Gastrointestinal stromal tumor of small intestine Plan: Follow up chest and abdominal CT done at [facility] a few months ago all reportedly came out normal although a more recent chest CT done at [facility] back in June 2023 revealed (+) increase in size in both the left extrapleural and left retroperitoneal mass, which are most likely the main source of his recently increasing and frequent upper abdominal pain and discomfort He is scheduled to see thoracic surgery at [facility] next Monday and will then be scheduled to undergo resection of these enlarging neurofibroma lesions soon (5) Recurrent right knee instability: Code(s): M23.51 - Chronic instability of knee, right knee Plan: Follow up with orthopedics as scheduled although his symptoms have improved a lot with his cervical spine laminectomy (6) Vitamin D deficiency: Code(s): E55.9 - Vitamin D deficiency, unspecified Plan: Continue Vitamin D3 2000 units QD (7) Insomnia: Code(s): G47.00 - Insomnia, unspecified Qualifiers: Insomnia type: unspecified Qualified Code(s): G47.00 - Insomnia, unspecified Plan: Sleep hygiene reinforced Continue Trazodone 100 mg Q HS PRN (8) Anxiety and depression: Code(s): F41.9 - Anxiety disorder, unspecified; F32.9 - Major depressive disorder, single episode, unspecified Plan: Continue Fluoxetine 40 mg QD Follow up with psychiatry as scheduled Plan Follow up in 3 months Orders: Orders Lipid Panel 08/25/23 E78.00 - Pure hypercholesterolemia, unspecified, Q85.01 - Neurofibromatosis, type 1 TSH reflex Free T4 08/25/23 E78.00 - Pure hypercholesterolemia, unspecified, Q85.01 - Neurofibromatosis, type 1 UA CC w/rflx Micro + Cult 08/25/23 Q85.01 - Neurofibromatosis, type 1, R30.0 - Dysuria Vitamin D 25-OH Total 08/25/23 E55.9 - Vitamin D deficiency, unspecified, Q85.01 - Neurofibromatosis, type 1 Complete Blood Count Auto Diff 08/25/23 Q85.01 - Neurofibromatosis, type 1 Comprehensive [place]. Panel Fast 08/25/23 E78.00 - Pure hypercholesterolemia, unspecified, Q85.01 - Neurofibromatosis, type 1 Medications: Refilled trazodone 100 mg PO BEDTIME PRN 90 tabs 0RF insomnia Coding Level of Care Code Est Pt Prev Care 18-39y(79856) Diagnoses Annual physical exam Z00.00 Cervical spine tumor D49.2 Neurofibromatosis, type 1 (von Recklinghausen's disease) Q85.01 Gastrointestinal stromal tumor of small intestine C49.A3 Recurrent right knee instability M23.51 Vitamin D deficiency E55.9 Insomnia, unspecified type G47.00 Insomnia type: unspecified Anxiety and depression F41.9; F32.9 Additional Codes RUBIO-7 Assessment Billing - RUBIO-7 Assessment Tool: RUBIO-7 Assessment 32708 ([id number])
== END 2023-08-25 16:51 | disposition home or self-care (01) ==
PROVIDERS: PCP Internal Medicine; Visit Provider Internal Medicine
DX: Z00.00 Encounter for general adult medical examination without abnormal findings (principal); Q85.01 Neurofibromatosis, type 1; C49.A3 Gastrointestinal stromal tumor of small intestine; D49.2 Neoplasm of unspecified behavior of bone, soft tissue, and skin; M23.51 Chronic instability of knee, right knee; E55.9 Vitamin D deficiency, unspecified; G47.00 Insomnia, unspecified; F41.9 Anxiety disorder, unspecified; F32.9 Major depressive disorder, single episode, unspecified
CPT/HCPCS: 99395

== ENCOUNTER 2023-12-01 15:45 | Outpatient (AMB) | payer MEDICARE, MEDICAID, SELFPAY ==
[2023-12-01 15:50] VITALS: BP 108/80; PULSE 68; O2SAT 96; BMI 28.5
--- NOTE | 2023-12-01 15:50 | MHC.PC.OV ---
Vital Signs 12/01/23 15:50 Height 6 ft 1 in Weight 216 lb 4 oz BMI 28.5 BP 108/80 Blood Pressure Location Lt brachial Position Sitting Pulse 68 Pulse Source Pulse Oximeter Pulse Oximetry (%) 96 Oxygen Delivery Method Room Air Intake Visit Reasons: neurofibromatosis Line Technician Required: No Accompanied by: Self / Same As Patient Allergies No Known Allergies Allergy (Mild, Verified 12/01/23 16:32) NONE Medication List - Last Reconciled 12/01/23 by Yasir Viramontes MD acetaminophen 500 - 1,000 mg (1 - 2 x 500 mg) PO Q6H PRN cholecalciferol (vitamin D3) 50 mcg PO DAILY 90 days fluoxetine 40 mg PO DAILY gabapentin 100 mg PO TID metoprolol tartrate 12.5 mg PO BID omeprazole 20 mg PO DAILY polyethylene glycol 3350 (Miralax) 17 grams PO DAILY tramadol 50 mg PO BID PRN trazodone 100 mg PO BEDTIME PRN Tobacco use date assessed: 12/01/23 Dental Screening Dental Screen Date: 12/01/23 Did you have a dental visit in the last 12 months?: No Did you have a dental problem in the last 6 months where you did not have access to dental care?: No Was dental information given to patient?: No HPI neurofibromatosis HPI Details Patient comes in today for his follow up visit He underwent Da ally thorascopic resection of his left chest wall mass last month on 10/17/2023 at [facility] with Dr. Hopson He was reportedly advised that pathology of the mass came back as a neurofibroma lesion States that he is currently feeling well and has no significant issues since his surgery last month although he apparently had recurrent tachycardia during his hospital stay and was started on Metoprolol tartrate 12.5 mg BID, which controlled his symptoms He denies any headaches or dizziness Denies any chest pains, no shortness of breath; states that he has not had any episodes of tachycardia lately and has been tolerating his Metoprolol with no issues No nausea/ vomiting, no abdominal pain No change in bowel habits noted [facility] Medical History Vitamin D deficiency Overweight (BMI 25.0-29.9) History of stomach cancer Gastrointestinal stromal tumor of small intestine Chronic depression Anxiety and depression Neurofibromatosis type 1-like syndrome Surgical History Hx of laminectomy (~12/15/22) Hx of local excision of skin lesion (~2019) Family History Father No problems noted. Mother No problems noted. Sister No problems noted. Daughter No problems noted. Social History Housing: Apartment Alcohol intake: never Patient Tobacco Use Status: Never used Tobacco e-Cigarette/Vaping Use: Currently Using service: No Current occupational status: disabled Cognitive needs: No Hearing needs: No Vision needs: Yes Questionnaire PHQ-9 Over the last 2 weeks, how often have you been bothered by any of the following problems? 1. Little interest or pleasure in doing things: not at all 2. Feeling down, depressed, or hopeless: several days 3. Trouble falling or staying asleep, or sleeping too much: nearly every day (falling asleep ) 4. Feeling tired or having little energy: nearly every day 5. Poor appetite or overeating: not at all (poor appetite) 6. Feeling bad about yourself - or that you are a failure or have let yourself or your family down: not at all 7. Trouble concentrating on things, such as reading the newspaper or watching television: not at all 8. Moving or speaking so slowly that other people could have noticed. Or the opposite - being so fidgety or restless that you have been moving around a lot more than usual: not at all 9. Thoughts that you would be better off or of hurting yourself in some way: not at all Total score: 7 Depression Screening Interpretation: Positive Depression Screening Follow-up: Existing condition and In treatment Depression Screening Done: Yes 37019 - PHQ-9 Billing: Yes Source: Developed by Drs. Mahin Ding, Anca Thompson, Aldo Spear and colleagues, with an educational tony from [employer]. Thrive Questionnaire Date Thrive assessed: 12/01/23 I am a: Patient What is your living situation today?: I have a steady place to live Within the past 12 months, did the food you bought not last and you didn't have the money to get more?: Never true Within the past 12 months, did you worry whether your food would run out before you got money to buy more?: Never true Do you have trouble paying for medicines?: No Do you have trouble getting transportation to medical appointments?: No Do you have trouble paying your heating and electricity bill?: No Do you have trouble taking care of your child, family member or friend?: No Do you have trouble with day-to-day activities such as bathing, preparing meals, shopping, managing finances, etc.?: No Are you currently unemployed and looking for a job?: No Are you interested in more education?: No Please select the resources that you would like help with: None Currently or been in a relationship where the following occur: no concerns reported THRIVE Score: 0 AUDIT C Alcohol Use Questionnaire (AUDIT-C) 1. How often do you have a drink containing alcohol?: Never 3. How often do you have six or more drinks on one occasion?: Never Total Score: 0 Score Reviewed/Action Taken: Yes RUBIO-7 AMB Questionnaire RUBIO-7 Date RUBIO - 7 assessed: 12/01/23 Feeling nervous, anxious, or on edge: 3 = Nearly every day Not being able to stop or control worryin = Nearly every day Worrying too much about different things: 3 = Nearly every day Trouble relaxin = Nearly every day Being so restless that it is hard to sit still: 0 = Not at all Becoming easily annoyed or irritable: 3 = Nearly every day Feeling afraid as if something awful might happen: 3 = Nearly every day Total RUBIO-7 score (0-4 normal; 5-9 mild; 10-14 moderate; 15-21 severe): 18 Source: Developed by Drs. Mahin Ding, Anca Thompson, Aldo Spear and colleagues, with an educational tony from [employer]. RUBIO-7 Assessment Billing RUBIO-7 Assessment Tool: RUBIO-7 Assessment 74787 Review of Systems Const Denies chills, Denies fatigue, Denies fever(s) and Denies headache(s) ENT Denies dysphagia, Denies dizziness, Denies otalgia, Denies headache(s), Denies neck pain, Denies odynophagia and Denies sore throat Card Denies chest pain, Denies rapid heart rate, Denies irregular heart rhythm, Denies palpitations and Denies dyspnea Resp Denies chest congestion, Denies cough, Denies dyspnea and Denies wheezing GI Denies abdominal pain, Reports constipation (at times - Rx help), Denies dysphagia, Denies heartburn, Denies diarrhea, Denies nausea, Denies odynophagia and Denies vomiting Denies hematuria, Denies difficulty urinating, Denies dysuria, Denies urinary frequency and Denies urinary urgency Musc Denies back pain, Denies arthralgias and Denies neck pain Skin/Breast Denies rash Neuro Denies dizziness, Denies headache(s) and Denies paresthesias Endo Denies fatigue and Denies palpitations Aller/Immun Denies wheezing Physical exam (Primary Care) Vital Signs: Last Vital Signs Pulse 68 12/01/23 15:50 BP 108/80 12/01/23 15:50 Pulse Ox 96 12/01/23 15:50 Oxygen Delivery Method Room Air 12/01/23 15:50 BMI result Body Mass Index 28.5 Tobacco/Smoking Status: Tobacco use Status Tobacco use date assessed 12/01/23 12/01/23 15:52 Patient Tobacco Use Status Never used Tobacco 12/01/23 15:52 e-Cigarette/Vaping Use Currently Using 12/01/23 15:52 PHQ-9: PHQ-9 Score PHQ-9: Total score 7 12/02/23 22:22 Depression Screening Interpretation: Positive Depression Screening Follow-up: Existing condition and In treatment Thrive Assessment: Date of Thrive Assessment Date Thrive assessed 12/01/23 12/01/23 15:52 Currently or been in a relationship where the following occur: no concerns reported Const General: no acute distress and alert HENMT Ears: TM's normal bilaterally and EAC's normal Throat: Yes posterior oropharynx normal and Yes tonsils normal (no TP congestion) Neck Neck: Yes no lymphadenopathy and Yes supple Thyroid: Thyroid normal Resp Auscultation: clear to auscultation bilaterally, no rales and no wheezes Cardio Rate: regular rate Rhythm: regular rhythm Heart sounds: no murmurs GI Palpation (GI): Soft to palpation and nontender Auscultation: normal bowel sounds General: Yes no CVA tenderness Back/Spine/Pelvis Back: no CVA tenderness Thoracic/Lumbar Spine: thoracic and lumbar spine normal to inspection Skin Rashes: no rashes Extrem General: Yes no clubbing, cyanosis or edema Assessment and Plan Assessment & Plan (1) Neurofibromatosis, type 1 (von Recklinghausen's disease): Code(s): Q85.01 - Neurofibromatosis, type 1 Plan: Follow up with neurology as scheduled (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 Panda on 12/15/2022, with significant improvement of his previous right arm and right leg symptoms Brain MRI and cervical spine MRI in October 2022 both revealed the presence of large neurofibromas within the C3-C4 neural foramen resulting in severe compression of the cord, displacing it into the left aspect of the spinal canal. There are also multiple additional neurofibromas seen along the other cervical levels with smaller intracanalicular components bilaterally at C2-C3, C4-C5 and C5-C6 Follow-up with neurosurgery as scheduled (3) Gastrointestinal stromal tumor of small intestine: Code(s): C49.A3 - Gastrointestinal stromal tumor of small intestine Plan: Follow up chest and abdominal CT done at [facility] last year reportedly all came out normal but subsequent chest CT done at [facility] back in June 2023 revealed (+) increase in size in both the left extrapleural and left retroperitoneal mass, which are most likely the main source of his recently increasing and frequent upper abdominal pain and discomfort Patient underwent laparoscopic (Da ally) resection of these enlarging neurofibroma lesions last month on 10/17/23 with (+) resolution of his previous recurrent right upper abdominal pain (4) Tachycardia: Code(s): R00.0 - Tachycardia, unspecified Plan: Continue Metoprolol tartrate 12.5 mg BID (5) Recurrent right knee instability: Code(s): M23.51 - Chronic instability of knee, right knee Plan: Follow up with orthopedics as scheduled - his symptoms have improved a lot with his cervical spine laminectomy (6) Vitamin D deficiency: Code(s): E55.9 - Vitamin D deficiency, unspecified Plan: Continue Vitamin D3 2000 units QD (7) Insomnia: Code(s): G47.00 - Insomnia, unspecified Qualifiers: Insomnia type: unspecified Qualified Code(s): G47.00 - Insomnia, unspecified Plan: Sleep hygiene reinforced Continue Trazodone 100 mg Q HS PRN (8) Anxiety and depression: Code(s): F41.9 - Anxiety disorder, unspecified; F32.9 - Major depressive disorder, single episode, unspecified Plan: Continue Fluoxetine 40 mg QD Follow up with psychiatry as scheduled Plan Follow up in 4 months Medications: Changed From tramadol 50 mg PO BID PRN To tramadol 50 mg PO Q6H PRN pain Coding Level of Care Code Est Pt Level 4 (05156) Diagnoses Neurofibromatosis, type 1 (von Recklinghausen's disease) Q85.01 Cervical spine tumor D49.2 Gastrointestinal stromal tumor of small intestine C49.A3 Tachycardia R00.0 Recurrent right knee instability M23.51 Vitamin D deficiency E55.9 Insomnia, unspecified type G47.00 Insomnia type: unspecified Anxiety and depression F41.9; F32.9 Additional Codes RUBIO-7 Assessment Billing - RUBIO-7 Assessment Tool: RUBIO-7 Assessment [id number] ([id number])
== END 2023-12-01 16:45 | disposition home or self-care (01) ==
PROVIDERS: PCP Internal Medicine; Visit Provider Internal Medicine
DX: Q85.01 Neurofibromatosis, type 1 (principal); C49.A3 Gastrointestinal stromal tumor of small intestine; R00.0 Tachycardia, unspecified; M23.51 Chronic instability of knee, right knee; E55.9 Vitamin D deficiency, unspecified; G47.00 Insomnia, unspecified; F41.9 Anxiety disorder, unspecified; F32.9 Major depressive disorder, single episode, unspecified
CPT/HCPCS: 99214

== ENCOUNTER 2024-04-02 10:04 | Outpatient (REF) | payer MEDICARE, MEDICAID, SELFPAY ==
[2024-04-02 10:19] LABS: MANUAL DIFF FLAG NO
[2024-04-02 11:05] LABS: Basophils Absolute Auto 0.1 X10*3/uL (0.0-0.2); Basophils Percent Auto 0.7 % (0-2); Eosinophils Absolute Auto 0.9 X10*3/uL (0.0-0.4); Eosinophils Percent Auto 8.8 % (0-4); Hemoglobin 14.7 g/dl (14.0-18.0); Imm Gran Abs Auto 0.04 X10*3/uL (0.00-0.03); Imm Gran Pct Auto 0.4 % (0.0-0.4); Lymphocytes Absolute Auto 2.1 X10*3/uL (1.2-4.9); Lymphocytes Percent Auto 19.7 % (20-40); Mean Corpuscular HGB Conc 32.7 g/dl (31.0-36.0); Mean Corpuscular Hemoglobin 26.9 pg (27.0-33.0); Mean Corpuscular Volume 82.4 fL (80.0-98.0); Mean Platelet Volume 9.7 fL (9.4-12.4); Monocytes Absolute Auto 1.4 X10*3/uL (0.1-1.2); Monocytes Percent Auto 13.2 % (2-11); Neutrophils Percent Auto 57.2 % (45-73); Platelet Count 335 X10*3/uL (160-400); Red Blood Count 5.46 X10*6/uL (4.60-5.80); Red Cell Distribution Width 13.8 % (11.0-16.0); White Blood Count 10.5 X10*3/uL (4.8-10.8)
[2024-04-02 11:09] LABS: Appearance Urine Clear; Color Urine Yellow; Glucose Urine UA Negative (Negative); Leukocyte Esterase Urine Negative (Negative); Nitrite Urine Negative (Negative); PH 5.5 (5.0-9.0); Specific Gravity - Urine >= 1.030 (1.005-1.025); Urine Blood Negative (Negative); Urine Ketones Trace mg/dL (Negative); Urine Protein Negative (Neg-Trace)
[2024-04-02 11:46] LABS: Alanine Aminotransferase 14 U/L (0-40); Albumin Level 4.2 g/dL (3.5-5.0); Alkaline Phosphatase 68 U/L (39-117); Anion Gap 13 (12-20); Aspartate Amino Transferase 15 U/L (5-37); Bilirubin Total 0.4 mg/dL (0.0-1.0); Blood Urea Nitrogen 15 mg/dL (9-16); Calcium 9.9 mg/dL (8.4-10.2); Carbon Dioxide 26 mmol/L (22-29); Chloride 103 mmol/L (96-108); Cholesterol 127 mg/dL (<200); Estimated Glomerular Filt Rate > 60; Glucose Fasting 99 mg/dL (60-99); HDL Cholesterol 31 mg/dL (>40); LDL Cholesterol Calculated 69 mg/dL (<100); Potassium 3.7 mmol/L (3.3-5.1); Sodium 138 mmol/L (135-145); Total Protein 8.2 g/dL (6.5-8.0); Triglycerides 136 mg/dL (<150)
[2024-04-02 11:55] LABS: TSH reflex Free T4 1.35 uIU/mL (0.32-4.0)
== END 2024-04-02 10:05 | disposition home or self-care (01) ==
LOC: HO.LAB 10:04
PROVIDERS: PCP Internal Medicine; Visit Provider Internal Medicine
DX: E78.00 Pure hypercholesterolemia, unspecified (principal); Q85.01 Neurofibromatosis, type 1; E55.9 Vitamin D deficiency, unspecified; R30.0 Dysuria
CPT/HCPCS: 36415; 80053; 80061; 81003; 82306; 84443; 85025

== ENCOUNTER 2024-05-28 14:35 | Outpatient (AMB) | payer MEDICARE, MEDICAID, SELFPAY ==
[2024-05-28 14:36] VITALS: BP 118/68; PULSE 104; O2SAT 97; BMI 26.6
--- NOTE | 2024-05-28 14:36 | MHC.PC.OV ---
Vital Signs 05/28/24 14:36 Height 6 ft 1 in Weight 202 lb BMI 26.6 BP 118/68 Blood Pressure Location Lt brachial Position Sitting Pulse 104 H Pulse Source Pulse Oximeter Pulse Oximetry (%) 97 Oxygen Delivery Method Room Air Intake Visit Reasons: neurofibromatosis Finger Waver Required: No Allergies No Known Allergies Allergy (Mild, Verified 05/28/24 15:01) NONE Medication List - Last Reconciled 05/28/24 by Yasir Viramontes MD acetaminophen 500 - 1,000 mg (1 - 2 x 500 mg) PO Q6H PRN cholecalciferol (vitamin D3) 50 mcg PO DAILY 90 days fluoxetine 40 mg PO DAILY metoprolol tartrate 12.5 mg PO BID omeprazole 20 mg PO DAILY polyethylene glycol 3350 (Miralax) 17 grams PO DAILY tramadol 50 mg PO Q6H PRN trazodone 100 mg PO BEDTIME PRN Tobacco use date assessed: 12/01/23 Dental Screening Dental Screen Date: 12/01/23 HPI neurofibromatosis HPI Details Patient comes in today for his follow up visit He will be seeing [facility] tomorrow for his left knee issues Relates increased pain in his left knee for a few weeks now and states that his current Rx (Tramadol) has not been helping adequately Needs his Tramadol Rx refilled and would like to have his dosage raised or the frequency of his dosing increased Patient states that he feels okay otherwise He denies any headaches or dizziness Denies any chest pains, no SOB No nausea/vomiting, no abdominal pain No change in bowel habits noted He had some follow up labs done a few weeks ago - to discuss his results [facility] Medical History Vitamin D deficiency Overweight (BMI 25.0-29.9) History of stomach cancer Gastrointestinal stromal tumor of small intestine Chronic depression Anxiety and depression Neurofibromatosis type 1-like syndrome Surgical History Hx of laminectomy (~12/15/22) Hx of local excision of skin lesion (~2019) Family History Father No problems noted. Mother No problems noted. Sister No problems noted. Daughter No problems noted. Social History Housing: Apartment Alcohol intake: never Patient Tobacco Use Status: Never used Tobacco e-Cigarette/Vaping Use: Currently Using service: No Current occupational status: disabled Cognitive needs: No Hearing needs: No Vision needs: Yes Questionnaire Thrive Questionnaire Date Thrive assessed: 12/01/23 AUDIT C Alcohol Use Questionnaire (AUDIT-C) 1. How often do you have a drink containing alcohol?: Never 3. How often do you have six or more drinks on one occasion?: Never Total Score: 0 Score Reviewed/Action Taken: Yes RUBIO-7 AMB Questionnaire RUBIO-7 Date RUBIO - 7 assessed: 12/01/23 Source: Developed by Drs. Mahin Ding, Anca Thompson, Aldo Spear and colleagues, with an educational tony from [employer]. Review of Systems Const Denies chills, Denies fatigue, Denies fever(s) and Denies headache(s) ENT Denies dysphagia, Denies dizziness, Denies otalgia, Denies headache(s), Denies neck pain, Denies odynophagia and Denies sore throat Card Denies chest pain, Denies rapid heart rate, Denies irregular heart rhythm, Denies palpitations and Denies dyspnea Resp Denies chest congestion, Denies cough, Denies dyspnea and Denies wheezing GI Denies abdominal pain, Reports constipation (at times - Rx help), Denies dysphagia, Denies heartburn, Denies diarrhea, Denies nausea, Denies odynophagia and Denies vomiting Denies hematuria, Denies difficulty urinating, Denies dysuria, Denies urinary frequency and Denies urinary urgency Musc Denies back pain, Reports arthralgias (increasing pain in the left knee recently) and Denies neck pain Skin/Breast Denies rash Neuro Denies dizziness, Denies headache(s) and Denies paresthesias Endo Denies fatigue and Denies palpitations Aller/Immun Denies wheezing Physical exam (Primary Care) Vital Signs: Last Vital Signs Pulse 104 H 05/28/24 14:36 BP 118/68 05/28/24 14:36 Pulse Ox 97 05/28/24 14:36 Oxygen Delivery Method Room Air 05/28/24 14:36 BMI result Body Mass Index 26.6 Tobacco/Smoking Status: Tobacco use Status Tobacco use date assessed 12/01/23 05/28/24 14:37 Patient Tobacco Use Status Never used Tobacco 05/28/24 14:37 e-Cigarette/Vaping Use Currently Using 05/28/24 14:37 Thrive Assessment: Date of Thrive Assessment Date Thrive assessed 12/01/23 05/28/24 14:37 Const General: no acute distress and alert HENMT Ears: TM's normal bilaterally and EAC's normal Throat: Yes posterior oropharynx normal and Yes tonsils normal (no TP congestion) Neck Neck: Yes no lymphadenopathy and Yes supple Thyroid: Thyroid normal Resp Auscultation: clear to auscultation bilaterally, no rales and no wheezes Cardio Rate: regular rate Rhythm: regular rhythm Heart sounds: no murmurs GI Palpation (GI): Soft to palpation and nontender Auscultation: normal bowel sounds General: Yes no CVA tenderness Back/Spine/Pelvis Back: no CVA tenderness Thoracic/Lumbar Spine: thoracic and lumbar spine normal to inspection Skin Rashes: no rashes Extrem General: Yes no clubbing, cyanosis or edema Left lower extremity: knee Details: tenderness Location: of the medial joint line; no swelling Results Reviewed Results Reviewed: Laboratory Tests 04/02/24 04/02/24 10:10 10:18 WBC 10.5 Hgb 14.7 Hct 45.0 RDW 13.8 Sodium 138 Potassium 3.7 Creatinine 0.87 Estimated GFR > 60 Fasting Glucose 99 Calcium 9.9 AST 15 ALT 14 Triglycerides 136 Cholesterol 127 LDL Cholesterol, Calc 69 HDL Cholesterol 31 L 25-OH Vitamin D Total 16.0 L TSH 1.35 Ur Specific [place] >= 1.030 H Urine Protein Negative Urine Glucose (UA) Negative Urine Blood Negative Urine Nitrite Negative Ur Leukocyte Esterase Negative Assessment and Plan Assessment & Plan (1) Neurofibromatosis, type 1 (von Recklinghausen's disease): Code(s): Q85.01 - Neurofibromatosis, type 1 Plan: Follow up with neurology as scheduled (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 Panda on 12/15/2022, with significant improvement of his previous right arm and right leg symptoms Brain MRI and cervical spine MRI in October 2022 both revealed the presence of large neurofibromas within the C3-C4 neural foramen resulting in severe compression of the cord, displacing it into the left aspect of the spinal canal. There are also multiple additional neurofibromas seen along the other cervical levels with smaller intracanalicular components bilaterally at C2-C3, C4-C5 and C5-C6 Follow-up with neurosurgery as scheduled (3) Gastrointestinal stromal tumor of small intestine: Code(s): C49.A3 - Gastrointestinal stromal tumor of small intestine Plan: Follow up chest and abdominal CT done at [facility] last year reportedly all came out normal but subsequent chest CT done at [facility] back in June 2023 revealed (+) increase in size in both the left extrapleural and left retroperitoneal mass, which are most likely the main source of his recently increasing and frequent upper abdominal pain and discomfort Patient underwent laparoscopic (Da ally) resection of these enlarging neurofibroma lesions back on 10/17/23 with (+) resolution of his previous recurrent right upper abdominal pain (4) Tachycardia: Code(s): R00.0 - Tachycardia, unspecified Plan: Continue Metoprolol tartrate 12.5 mg BID (5) Recurrent right knee instability: Code(s): M23.51 - Chronic instability of knee, right knee Plan: Follow up with orthopedics as scheduled - his symptoms have improved a lot with his cervical spine laminectomy (6) Tear of medial collateral ligament of left knee: Code(s): S83.412A - Sprain of medial collateral ligament of left knee, initial encounter Qualifiers: Encounter type: sequela Qualified Code(s): S83.412S - Sprain of medial collateral ligament of left knee, sequela Plan: MRI of the left knee done back in March 2024 revealed (+) tear of the left MCL He is scheduled to see orthopedics at [facility] tomorrow for further management Continue Tramadol 50 mg QID PRN - he is advised that this comes only in 1 dose and insurance companies will NOT cover dosing of this more than QID Will start patient additionally on Nabumetone 500 mg BID PRN for pain (7) Vitamin D deficiency: Code(s): E55.9 - Vitamin D deficiency, unspecified Plan: Continue Vitamin D3 2000 units QD (8) Insomnia: Code(s): G47.00 - Insomnia, unspecified Qualifiers: Insomnia type: unspecified Qualified Code(s): G47.00 - Insomnia, unspecified Plan: Sleep hygiene reinforced Continue Trazodone 100 mg Q HS PRN (9) Anxiety and depression: Code(s): F41.9 - Anxiety disorder, unspecified; F32.9 - Major depressive disorder, single episode, unspecified Plan: Continue Fluoxetine 40 mg QD Follow up with psychiatry as scheduled Plan Follow up in 4 months Medications: New nabumetone Take with food as needed 500 mg PO BID PRN 60 tabs 1RF pain Changed From tramadol 50 mg PO Q6H PRN pain To tramadol 50 mg PO Q6H 30 days PRN 120 tabs 0RF pain Coding Level of Care Code Est Pt Level 4 (86927) Diagnoses Neurofibromatosis, type 1 (von Recklinghausen's disease) Q85.01 Cervical spine tumor D49.2 Gastrointestinal stromal tumor of small intestine C49.A3 Tachycardia R00.0 Recurrent right knee instability M23.51 Tear of medial collateral ligament of left knee, sequela S83.412S Encounter type: sequela Vitamin D deficiency E55.9 Insomnia, unspecified type G47.00 Insomnia type: unspecified Anxiety and depression F41.9; F32.9
== END 2024-05-28 15:16 | disposition home or self-care (01) ==
PROVIDERS: PCP Internal Medicine; Visit Provider Internal Medicine
DX: Q85.01 Neurofibromatosis, type 1 (principal); D49.2 Neoplasm of unspecified behavior of bone, soft tissue, and skin; S83.412A Sprain of medial collateral ligament of left knee, initial encounter; C49.A3 Gastrointestinal stromal tumor of small intestine; R00.0 Tachycardia, unspecified; M23.51 Chronic instability of knee, right knee; E55.9 Vitamin D deficiency, unspecified; G47.00 Insomnia, unspecified; F41.9 Anxiety disorder, unspecified; F32.9 Major depressive disorder, single episode, unspecified
CPT/HCPCS: 99214

== ENCOUNTER → 2025-01-22 23:59 | Outpatient (BNV) | payer MEDICARE, MEDICAID, SELFPAY | PROVIDERS: PCP Internal Medicine; Visit Provider Internal Medicine | DX: D64.9 Anemia, unspecified (principal); E83.42 Hypomagnesemia; I95.9 Hypotension, unspecified | CPT/HCPCS: G0180 ==